=== PATIENT | male | born 1965 | race Caucasian/White ===

== ENCOUNTER 2024-10-15 06:09 | Day surgery (SDC) | payer OTHER ==
[2024-10-15] VITALS (11 sets, daily range): BP systolic 111–181; BP diastolic 78–97
[~2024-10-15] VITALS: Ht 182.9 cm; Wt 124.7 kg
[~2024-10-15 06:09] MED LIST: MELO7.5 PO; Viagra100 MG PO
[2024-10-15] MEDS ORDERED: CeFAZolin Sodium 3,000 MG in NS 100 ML IV SCH (06:30)
[2024-10-15] MEDS ORDERED: Lactated Ringer's 1,000 ML IV SCH (06:30)
[2024-10-15] MEDS ORDERED: Dexmedetomidine HCL 200 MCG / 2 ML ONE (06:37)
[2024-10-15] MEDS ORDERED: Lidocaine HCl 4% 5 ML SDA ONE (06:38)
[2024-10-15] MEDS ORDERED: propofoL 100 ML IV ONE (06:38)
[2024-10-15] MEDS ORDERED: Metoclopramide HCl 5MG / ML 2ML Vial ONE (06:42)
[2024-10-15] MEDS ORDERED: Ondansetron HCl 2 MG / ML 2ML Vial ONE (06:42)
[2024-10-15] MEDS ORDERED: HYDROmorphone HCl/Pf 1MG SYR ONE (06:42)
[2024-10-15] MEDS ORDERED: Ketorolac Tromethamine 30mg Vial ONE (06:42)
[2024-10-15] MEDS ORDERED: Sugammadex Sodium 200 MG/2ML SDV (100 MG/ML) ONE (06:42)
[2024-10-15] MEDS ORDERED: Rocuronium Bromide 10 MG/ML 5ML Injection IV ONE (06:42)
[2024-10-15] MEDS ORDERED: Dexamethasone Sod Phos 10 MG/ML 1ML VIAL ONE (06:42)
[2024-10-15] MEDS ORDERED: Lidocaine HCl 2% 20 ML MDV ONE (06:46)
--- NOTE | 2024-10-15 06:47 | NUR ---
Ambulatory in Day Surgery History, Chart, Medications and Allergies reviewed before start of procedure. Pre-Op teaching done. Pt verbalizes understanding. Patient States Post-Procedure ride home has been arranged.
[2024-10-15] MEDS ORDERED: Bupivacaine 0.5% HCl 5 MG/ML 30MLVIAL ONE (06:56)
[2024-10-15] MEDS ORDERED: Acetaminophen 500 MG Tab PO SCH (07:15)
[2024-10-15] MEDS ORDERED: FentaNYL Citrate 50 MCG/ML 2 ML Injection ONE (08:44)
[2024-10-15] MEDS ORDERED: OxyCODONE 5 mg/Acetamin 325 mg TABLET PO PRN (09:15)
== END 2024-10-15 10:25 | disposition home or self-care (01) ==
LOC: ORSCMMR 06:09 → ORD 07:30 → ORSCMMR 10:25
PROVIDERS: Surgery
PROC: 3E0T3BZ Introduction of Anesthetic Agent into Peripheral Nerves and Plexi, Percutaneous Approach (ICD-10-PCS; principal; 2024-10-15 07:30)
PROC: 0DNU4ZZ Release Omentum, Percutaneous Endoscopic Approach (ICD-10-PCS; principal; 2024-10-15 07:30)
PROC: 0YU54JZ Supplement Right Inguinal Region with Synthetic Substitute, Percutaneous Endoscopic Approach (ICD-10-PCS; principal; 2024-10-15 07:30)
PROC: 8E0W4CZ Robotic Assisted Procedure of Trunk Region, Percutaneous Endoscopic Approach (ICD-10-PCS; principal; 2024-10-15 07:30)
DX: K40.30 Unilateral inguinal hernia, with obstruction, without gangrene, not specified as recurrent (principal); K66.0 Peritoneal adhesions (postprocedural) (postinfection); D17.6 Benign lipomatous neoplasm of spermatic cord; E78.5 Hyperlipidemia, unspecified; E11.9 Type 2 diabetes mellitus without complications; E66.9 Obesity, unspecified; Z68.37 Body mass index [BMI] 37.0-37.9, adult; Z79.899 Other long term (current) drug therapy
CPT/HCPCS: A9270; C1781; J0690; J1100; J1171; J1885; J2003; J2405; J2704; J2765; J3010; J7120